=== PATIENT | female | born 1975 | race Caucasian/White ===

== ENCOUNTER 2017-03-12 20:04 | Emergency (ER) | payer BC ==
[~2017-03-12] VITALS: Ht 170.2 cm; Wt 110.0 kg
[~2017-03-12 20:04] MED LIST: AMOX-351 PO; HYDR-4246 PO; NO ROUTINE MEDS
[2017-03-12 20:06] VITALS: Ht 170.2 cm; Wt 110.0 kg
--- OUTSIDE RECORDS SUMMARY | 2017-03-12 20:09 | XMS REPORT | Referral Summary ---
Author Author [facility], [facility] Care Organization [facility] Address Unknown Phone Unavailable Care Team Providers Care Ice Guard Inspector Name Role Phone Jeffrey Benedict Primary Care Physician [phone] Encounter [facility] [id number] Date(s): 06/08/15 - 06/08/15 [facility], [address] [place] [address] Discharge Diagnosis: Lower UTI Discharge Diagnosis: Dysuria Discharge Diagnosis: Hematuria Discharge Disposition: 01-Home or Self Care Attending Physician: Madan Benedict MD Admitting Physician: Madan Benedict MD Vital Signs Most recent to 1 oldest [Reference Range]: Temperature Tympanic 37.2 degC [36.6-38.1 degC] (06/08/15 7:51 PM) Apical Heart Rate 91 bpm [60-100 bpm] (06/08/15 7:51 PM) Blood Pressure 126/76 mmHg [90-140/60-90 mmHg] (06/08/15 7:51 PM) SpO2 98 % (06/08/15 7:51 PM) Problem List No data available for this section Allergies, Adverse Reactions, Alerts Substance Reaction Severity Status sulfa drugs Active Medications No Known Medications Results No data available for this section Immunizations Vaccine Date Refusal Reason tetanus/diphth/pertuss (Tdap) adult/adol 11/04/10 Procedures Procedure Date Related Diagnosis Body Site section x 3 Repair of lacerations on chest1 Tubal ligation 1fell through window, age 4 Social History Social History Type Response Smoking Status Never smoker Assessment and Plan Extracted from: Title: Immediate care Author: Madan Benedict MD Date: 06/08/15 Assessment/Plan Dysuria Hematuria Lower UTI Orders: sulfamethoxazole-trimethoprim, 1 tabs, Oral, BID, X 10 days, # 20 tabs , 0 Refill(s), Pharmacy: [id number] Dipstick urinalysis was positive for 2+ leukocytes but also positive for blood. We'll treat for urinary tract infection and I advised follow-up urinalysis in 2 weeks to be sure the hematuria clears. Encourage fluids and follow-up if symptoms get worse.
--- OUTSIDE RECORDS SUMMARY | 2017-03-12 20:09 | XMS REPORT | Referral Summary ---
Author Author [facility], [facility] Organization [facility] Address Unknown Phone Unavailable Care Team Providers Care Skidway Man Name Role Phone Jeffrey Benedict Primary Care Physician [phone] Encounter [facility] [id number] Date(s): 11/18/16 - 11/18/16 [facility], [address] [place] [address] Discharge Diagnosis: Left foot pain Discharge Diagnosis: Left ankle sprain Discharge Diagnosis: Lower leg pain Discharge Disposition: 01-Home or Self Care Attending Physician: Madan Benedict MD Admitting Physician: Madan Benedict MD Vital Signs Most recent to 1 oldest [Reference Range]: Peripheral Pulse 79 bpm Rate [60-100 bpm] (11/18/16 1:24 PM) Blood Pressure 138/88 mmHg [90-140/60-90 mmHg] (11/18/16 1:24 PM) Problem List Condition Effective Dates Status Health Status Informant Obesity(Confirmed) Active patient Allergies, Adverse Reactions, Alerts Substance Reaction Severity Status sulfa drugs Active Medications PROzac 10 mg oral capsule 10 mg 1 caps, Oral, Daily, # 30 caps, 6 Refill(s), Pharmacy: [facility] # [id number], 1 caps Oral Daily Start Date: 08/31/16 Status: Ordered Tylenol Extra Strength 500 mg oral tablet 1,000 mg 2 tabs, Oral, q6hr, as needed for pain, 0 Refill(s) Start Date: 11/18/16 Status: Ordered Results No data available for this section Immunizations Given and Recorded Vaccine Date Status Refusal Reason tetanus/diphth/pertuss (Tdap) adult/adol1 06/20/16 Recorded tetanus/diphth/pertuss (Tdap) adult/adol 11/04/10 Recorded 1Location [place] [facility] [place] Procedures Procedure Date Related Diagnosis Body Site section x 3 Repair of lacerations on chest1 Tubal ligation 1fell through window, age 4 Social History Social History Type Response Smoking Status Never smoker Assessment and Plan Extracted from: Title: Acute OV-LLE Pain Author: Madan Benedict MD Date: 11/18/16 Impression and Plan Diagnosis Lower leg pain (LCL44-BS M79.669, Discharge, Medical). Left ankle sprain (ALJ53-YD S93.402A, Discharge, Medical). Left foot pain (SEG11-BI M79.672, Discharge, Medical). Orders Orders (Selected) Outpatient Orders Ordered (Exam Started) XR Foot Complete Left: XR Tibia/Fibula Left: .
--- OUTSIDE RECORDS SUMMARY | 2017-03-12 20:09 | XMS REPORT | Referral Summary ---
Author Author [facility], Family Medicine Organization [facility] Address Unknown Phone Unavailable Care Team Providers Care Latexer Name Role Phone Jeffrey Benedict Primary Care Physician [phone] Encounter Date(s): 07/28/16 - 07/28/16 [facility], [address] [place] [address] Discharge Diagnosis: Anxiety Discharge Disposition: 01-Home or Self Care Attending Physician: Madan Benedict MD Admitting Physician: Madan Benedict MD Vital Signs Most recent to 1 oldest [Reference Range]: Temperature Tympanic 37 degC [36.6-38.1 degC] (07/28/16 3:44 PM) Peripheral Pulse 80 bpm Rate [60-100 bpm] (07/28/16 3:44 PM) Blood Pressure 117/78 mmHg [90-140/60-90 mmHg] (07/28/16 3:44 PM) Problem List Condition Effective Dates Status Health Status Informant Obesity(Confirmed) Active patient Allergies, Adverse Reactions, Alerts Substance Reaction Severity Status sulfa drugs Active Medications [place] 5 mg-325 mg oral tablet 1-2 tabs, Oral, q6hr, as needed for pain, # 30 tabs, 0 Refill(s) Start Date: 06/21/16 Status: Ordered PROzac 10 mg oral capsule 10 mg 1 caps, Oral, Daily, # 30 caps, 0 Refill(s), Pharmacy: [facility] # [id number], 1 caps Oral Daily Start Date: 07/28/16 Status: Ordered Results No data available for this section Immunizations Vaccine Date Refusal Reason tetanus/diphth/pertuss (Tdap) adult/adol1 06/20/16 tetanus/diphth/pertuss (Tdap) adult/adol 11/04/10 1Location [place] [facility] [place] [facility] Procedures Procedure Date Related Diagnosis Body Site section x 3 Repair of lacerations on chest1 Tubal ligation 1fell through window, age 4 Social History Social History Type Response Smoking Status Never smoker Assessment and Plan No data available for this section
--- OUTSIDE RECORDS SUMMARY | 2017-03-12 20:09 | XMS REPORT | Referral Summary ---
Author Author [facility], Family Medicine Organization [facility] Address Unknown Phone Unavailable Care Team Providers Care Asphalt Heater Tender Name Role Phone Jeffrey Benedict Primary Care Physician [phone] Encounter Date(s): 06/10/15 - 06/10/15 [facility] [address] [place] [address] Discharge Diagnosis: Myalgia Discharge Diagnosis: Rash Discharge Diagnosis: Acute UTI Discharge Disposition: 01-Home or Self Care Attending Physician: Madan Benedict MD Admitting Physician: Madan Benedict MD Vital Signs Most recent to 1 oldest [Reference Range]: Temperature Tympanic 36.8 degC [36.6-38.1 degC] (06/10/15 10:59 AM) Peripheral Pulse 68 bpm Rate [60-100 bpm] (06/10/15 10:59 AM) Blood Pressure 98/55 mmHg [90-140/60-90 mmHg] (06/10/15 10:59 AM) Problem List No data available for this section Allergies, Adverse Reactions, Alerts Substance Reaction Severity Status sulfa drugs Active Medications No data available for this section Results Hematology Most recent to 1 oldest [Reference Range]: WBC [4.8-10.8 6.8 10*3/uL 10*3/uL] (06/10/15 12:00 PM) RBC [4.00-5.20 4.24 10*6/uL 10*6/uL] (06/10/15 12:00 PM) Hgb [12.0-16.0 12.5 gm/dL gm/dL] (06/10/15 12:00 PM) Hct [37.0-47.0 %] 36.2 % *LOW* (06/10/15 12:00 PM) MCV [82.0-99.0 fL] 85.4 fL (8/5/15 12:00 PM) MCH [27.0-32.0 pg] 29.5 pg (06/10/15 12:00 PM) MCHC [32.0-36.0 34.5 gm/dL gm/dL] (06/10/15 12:00 PM) RDW [11.5-14.5 %] 13.3 % (06/10/15 12:00 PM) Platelet [150-400 254 10*3/uL 10*3/uL] (06/10/15 12:00 PM) MPV [8.8-14.8 fL] 9.9 fL (06/10/15 12:00 PM) Immature 0.7 % Granulocytes (06/10/15 12:00 PM) [0.0-1.0 %] Neutrophils [51-75 80 % %] *HI* (06/10/15 12:00 PM) Lymphocytes [20-46 5 % %] *LOW* (06/10/15 12:00 PM) Monocytes [4-11 %] 10 % (06/10/15 12:00 PM) Eosinophils [0-4 %] 4 % (06/10/15 12:00 PM) Basophils [0-2 %] 0 % (06/10/15 12:00 PM) Neutro Absolute 5.41 10*3 [1.90-7.00 10*3] (06/10/15 12:00 PM) Lymph Absolute 0.36 10*3 [0.80-3.30 10*3] *LOW* (06/10/15 12:00 PM) [place] Absolute 0.67 10*3 [0.30-1.00 10*3] (06/10/15 12:00 PM) Eos Absolute 0.30 10*3 [0.00-0.50 10*3] (06/10/15 12:00 PM) Baso Absolute 0.01 10*3 [0.00-0.20 10*3] (06/10/15 12:00 PM) Immunizations Vaccine Date Refusal Reason tetanus/diphth/pertuss (Tdap) adult/adol 11/04/10 Procedures Procedure Date Related Diagnosis Body Site Collection of venous blood by venipuncture 06/10/15 section x 3 Repair of lacerations on chest1 Tubal ligation 1fell through window, age 4 Social History Social History Type Response Smoking Status Never smoker Assessment and Plan Extracted from: Title: Office Visit Note Author: Madan Benedict MD Date: 06/10/15 Assessment/Plan Acute UTI Urine culture and sensitivity is pending. I think she is having allergic reaction to the sulfa medicine and so we stopped it. I started her on amoxicillin him. Tad, but advised that when the culture and sensitivity results are available we may have to change antibiotics again. Ordered: Office Visit Level 3 Est 04151 Myalgia Considerations include symptoms related to urinary infection, immunologic symptoms related to allergic reaction to the sulfa medicine, or some other source of inflammatory symptoms such as West Nile or other viral infection. At this point she is not acutely ill/toxic and I don't think we would consider doing a lumbar puncture/spinal tap. If this was West Nile, supportive care would be all we have to offer medically (there is no specific antiviral medicine for West about Nile virus). For now we will just observe. May continue ibuprofen or Tylenol for fever and achiness. Ordered: CBC w/ Differential Office Visit Level 3 Est 43896 West Nile Virus PCR-Martinez Rash I think this rash is an allergic reaction to sulfa. Stop current medication and we have listed her as allergic to sulfa for the future. Ordered: Office Visit Level 3 Est [id number] Orders: amoxicillin, 875 mg 1 tabs, Oral, BID, X 10 days, # 20 tabs, 0 Refill( s), Pharmacy: [facility] #[id number], 1 tabs Oral BID,x10 days
--- OUTSIDE RECORDS SUMMARY | 2017-03-12 20:09 | XMS REPORT | Referral Summary ---
Author Author [facility] [place], [facility] Organization [facility] Address Unknown Phone Unavailable Care Team Providers Care Shade Hanger Name Role Phone Jeffrey Benedict Primary Care Physician [phone] Encounter Date(s): 05/12/16 - 05/12/16 [facility], [address] [place] [address] Discharge Diagnosis: Easy bruising Discharge Diagnosis: FH: ovarian cancer Discharge Diagnosis: Urine, incontinence, stress female Discharge Diagnosis: Fatigue Discharge Diagnosis: Cervical cancer screening Discharge Disposition: -Home or Self Care Attending Physician: Madan Benedict MD Admitting Physician: Madan Benedict MD Vital Signs Most recent to 1 oldest [Reference Range]: Temperature Tympanic 36.9 degC [36.6-38.1 degC] (05/12/16 2:02 PM) Peripheral Pulse 84 bpm Rate [60-100 bpm] (05/12/16 2:02 PM) Blood Pressure 121/78 mmHg [90-140/60-90 mmHg] (05/12/16 2:02 PM) Problem List No data available for this section Allergies, Adverse Reactions, Alerts Substance Reaction Severity Status sulfa drugs Active Medications No Known Medications Results Hematology Most recent to 1 oldest [Reference Range]: WBC [4.8-10.8 7.1 10*3/uL 10*3/uL] (05/12/16 3:12 PM) RBC [4.00-5.20] 4.40 (05/12/16 3:12 PM) Hgb [12.0-16.0 12.0 gm/dL gm/dL] (05/12/16 3:12 PM) Hct [37.0-47.0 %] 36.8 % *LOW* (05/12/16 3:12 PM) MCV [82.0-99.0 fL] 83.6 fL (05/12/16 3:12 PM) MCH [27.0-32.0 pg] 27.3 pg (05/12/16 3:12 PM) MCHC [32.0-36.0 32.6 gm/dL gm/dL] (05/12/16 3:12 PM) RDW [11.5-14.5 %] 14.1 % (05/12/16 3:12 PM) Platelet [150-400 314 10*3/uL 10*3/uL] (05/12/16 3:12 PM) MPV [8.8-14.8 fL] 9.7 fL (05/12/16 3:12 PM) Immature 0.4 % Granulocytes (05/12/16 3:12 PM) [0.0-1.0 %] Neutrophils [51-75 52 % %] (05/12/16 3:12 PM) Lymphocytes [20-46 33 % %] (05/12/16 3:12 PM) Monocytes [4-11 %] 14 % *HI* (05/12/16 3:12 PM) Eosinophils [0-4 %] 1 % (05/12/16 3:12 PM) Basophils [0-2 %] 0 % (05/12/16 3:12 PM) Neutro Absolute 3.68 10*3 [1.90-7.00 10*3] (05/12/16 3:12 PM) Lymph Absolute 2.33 10*3 [0.80-3.30 10*3] (05/12/16 3:12 PM) [place] Absolute 0.98 10*3 [0.30-1.00 10*3] (05/12/16 3:12 PM) Eos Absolute 0.10 10*3 [0.00-0.50 10*3] (05/12/16 3:12 PM) Baso Absolute 0.02 10*3 [0.00-0.20 10*3] (05/12/16 3:12 PM) Sed Rate [0-23] 7 (05/12/16 3:12 PM) Coagulation Most recent to 1 oldest [Reference Range]: PT Venous (05/12/16 3:12 PM) INR [0.8-1.2] 1.0 1 (05/12/16 3:12 PM) PTT [25.0-35.0 27.3 seconds seconds] (05/12/16 3:12 PM) 1Result Comment: Normal (no anticoagulant): 0.8 - 1.2 Units Routine Therapeutic Range: 2.0 - 3.0 Units High Risk Therapeutic Range: 2.5 - 3.5 Units Chemistry Most recent to 1 oldest [Reference Range]: Sodium Lvl [135-144 140 mEq/L mEq/L] (05/12/16 3:12 PM) Potassium Lvl 4.0 mEq/L [3.5-5.2 mEq/L] (05/12/16 3:12 PM) Chloride [99-111 108 mEq/L mEq/L] (05/12/16 3:12 PM) CO2 [22-31 mEq/L] 25 mEq/L (05/12/16 3:12 PM) AGAP [3-20] 7 (05/12/16 3:12 PM) BUN [7-19 mg/dL] 8 mg/dL (05/12/16 3:12 PM) Glucose Lvl [70-99 75 mg/dL mg/dL] (05/12/16 3:12 PM) Creatinine Lvl 0.78 mg/dL [0.57-1.11 mg/dL] (05/12/16 3:12 PM) eGFR [>60 mL/min] >60 mL/min 1 (05/12/16 3:12 PM) Calcium Lvl 8.8 mg/dL [8.9-10.5 mg/dL] *LOW* (05/12/16 3:12 PM) TSH with Reflex Free 1.97 T4 [0.35-4.94] (05/12/16 3:12 PM) 1Result Comment: Multiply eGFR results by 1.21 for race. Urinalysis Most recent to 1 oldest [Reference Range]: UA Color Yellow (05/12/16 1:40 PM) UA Appear Clear (05/12/16 1:40 PM) UA pH [5.0-8.0] 7.0 (05/12/16 1:40 PM) UA Leuk Est Negative [Negative] (05/12/16 1:40 PM) UA Nitrite Negative [Negative] (05/12/16 1:40 PM) UA Protein Negative [Negative] (05/12/16 1:40 PM) UA Glucose Negative [Negative] (05/12/16 1:40 PM) UA Ketones Negative [Negative] (05/12/16 1:40 PM) UA Urobilinogen 0.2 mg/dL [<=1.0 mg/dL] (05/12/16 1:40 PM) UA Bili [Negative] Negative (05/12/16 1:40 PM) UA Blood [Negative] Negative (05/12/16 1:40 PM) UA Spec Grav 1.015 [1.003-1.030] (05/12/16 1:40 PM) Type Cl Catch (05/12/16 1:40 PM) Immunizations Vaccine Date Refusal Reason tetanus/diphth/pertuss (Tdap) adult/adol 11/04/10 Procedures Procedure Date Related Diagnosis Body Site Collection of venous blood by venipuncture 05/12/16 section x 3 Repair of lacerations on chest1 Tubal ligation 1fell through window, age 4 Social History Social History Type Response Smoking Status Never smoker Assessment and Plan Extracted from: Title: CRMMP Author: Madan Benedict MD Date: 05/12/16 Impression and Plan Diagnosis Urine, incontinence, stress female (GTE95-NT N39.3, Discharge, Medical). Retention, urine (SSM35-HP R33.9, Working, Medical). FH: ovarian cancer (NYG46-BW Z80.41, Discharge, Medical). Fatigue (VVJ24-QI R53.83, Discharge, Medical). Easy bruising (AKA43-DU R23.8, Discharge, Medical). Cervical cancer screening (AJU29-UM Z12.4, Discharge, Medical). Orders Orders (Selected) Outpatient Orders Future (On Hold) HPV High Risk, Thin Prep: Pathology Abstracter Cytology Order: .
--- OUTSIDE RECORDS SUMMARY | 2017-03-12 20:09 | XMS REPORT | Referral Summary ---
Author Author [facility], [facility] Organization [facility] Address Unknown Phone Unavailable Care Team Providers Care Sander Hand Name Role Phone Jeffrey Benedict Primary Care Physician [phone] Encounter [facility] [id number] Date(s): 01/08/16 - 01/08/16 [facility], [address] [place] [address] Discharge Diagnosis: Viral URI Discharge Diagnosis: Contact dermatitis Discharge Disposition: 01-Home or Self Care Attending Physician: Madan Benedict MD Admitting Physician: Madan Benedict MD Vital Signs Most recent to 1 oldest [Reference Range]: Temperature Tympanic 37.1 degC [36.6-38.1 degC] (01/08/16 2:11 PM) Peripheral Pulse 75 bpm Rate [60-100 bpm] (01/08/16 2:11 PM) Blood Pressure 120/70 mmHg [90-140/60-90 mmHg] (01/08/16 2:11 PM) SpO2 98 % (01/08/16 2:11 PM) Problem List No data available for this section Allergies, Adverse Reactions, Alerts Substance Reaction Severity Status sulfa drugs Active Medications triamcinolone 0.1% topical cream 1 tamara, Topical, TID, # 15 g, 0 Refill(s), Pharmacy: [facility] #[id number] Start Date: 01/08/16 Stop Date: 02/08/16 Status: Ordered Results No data available for [...] Visit Note Author: Madan Benedict MD Date: 01/08/16 Assessment/Plan Contact dermatitis Viral URI Orders: triamcinolone topical, 1 tamara, Topical, TID, # 15 g, 0 Refill(s), Pharmacy: [facility] #[id number] Discussed symptomatic management with viral URI and signs and symptoms to watch for regarding possible secondary bacterial infection. Prescription for triamcinolone cream for contact dermatitis in the upper chest , and she may also use it for an eczematous type rash on the hands. Advised to limit use to about 10 days to avoid steroid related toxicity/atrophy. Follow-up when necessary.
--- NOTE | 2017-03-12 20:15 | ERPDOC ---
Departure Disposition Decision Date: March 12, 2017 Disposition Decision Time: 21:15 (MILLICENT TRIVEDI APRN) Disposition: 01 DISCHARGED HOME, SELF-CARE Impression Impression (MILLICENT TRIVEDI APRN) Impression: Primary Impression: Avulsion fracture of metatarsal bone of left foot Encounter type: initial encounter Fracture type: closed Qualified Codes: S92.302A - Fracture of unspecified metatarsal bone(s), left foot, initial encounter for closed fracture Condition: Improved Seen By: Mid-level only (MILLICENT TRIVEDI APRN) Referrals: ROMEL POLLARD MD (Family) Patient Instructions: Foot Fracture in Adults (ED) Problems/Meds/Labs Reviewed?: Yes Medications reviewed and manag: Yes (MILLICENT TRIVEDI APRN) Additional Instructions: You x-ray shows an avulsion fracture over the 5th metatarsal which could represent a new fracture or an old fracture. Wear walking boot as directed. You may take 800mg of ibuprofen every 8 hours as needed for pain with food. Follow with your PCP in one week for re-evaluation and repeat x-ray. Follow treatment plan. Follow up care ordered?: Yes Mental Status: Alert, Oriented (MILLICENT TRIVEDI APRN) HPI - Lower Extremity General Chief Complaint: Lower Extremity Pain Stated Complaint: LT FT PAIN Time Seen by Provider: 20:06 Source: patient (MILLICENT TRIVEDI APRN) Time Seen by Provider: 20:06 (YASMEEN BOB DO) HPI - Lower Extremity Initial Comments 42 YO F presents to ED with left foot pain. Says she was at home today at approx. 1500 and stepped wrong. Unsure what she did to her foot. Was on carpet inside home. Says she felt a pop. Painful if she is bearing weight. Has not taken anything for pain. Pain/Severity Scale: Now: 2/10 (non weight bearing), Worst: 8/10 (weight bearing) Pain/Injury Location: left foot Quality: aching (MILLICENT TRIVEDI APRN) Allergies: Coded Allergies: sulfamethoxazole (Verified Allergy, Unknown, 03/12/17) trimethoprim (Verified Allergy, Unknown, 03/12/17) Past History Past Medical History Metabolic: DENIES: diabetes Cardiac: DENIES: angina Respiratory: DENIES: asthma GI: DENIES: ulcers Female: DENIES: renal insufficiency Neurological: DENIES: seizures Musculoskeletal: DENIES: osteoarthritis Psychological: anxiety (MILLICENT TRIVEDI EXTRUSION TECHNICIAN) Surgical History Reproductive/: (MILLICENT TRIVEDI EXTRUSION TECHNICIAN) Family History Family PMH: FOUND: other (noncontributory) (MILLICENT TRIVEDI APRN) Vaccines Hx Tetanus, Diptheria, Pertuss: Yes (2004) (MILLICENT TRIVEDI EXTRUSION TECHNICIAN) Social History Sexuality: male partner Household Members: family (MILLICENT TRIVEDI APRN) Review of Systems Constitutional Constitutional: DENIES: chills, dizziness, fever, weakness (MILLICENT TRIVEDI EXTRUSION TECHNICIAN) Eyes General: DENIES: erythema, exudate Lids/Accessories: DENIES: erythema, swelling (MILLICENT TRIVEDI EXTRUSION TECHNICIAN) ENMT Ears: DENIES: pain Sinuses: DENIES: congestion, rhinorrhea Mouth/Throat: DENIES: sore throat (LEAH TRIVEDIS A EXTRUSION TECHNICIAN) Cardiovascular Cardiac: DENIES: chest pain, murmur Rhythm/Rate: DENIES: palpitations (MILLICENT TRIVEDI EXTRUSION TECHNICIAN) Pulmonary Respiratory: DENIES: cough, dyspnea (MILLICENT TRIVEDI EXTRUSION TECHNICIAN) GI Upper Abdomen: DENIES: nausea, pain, vomiting Lower Abdomen: DENIES: diarrhea, pain (LEAH TRIVEDIS A EXTRUSION TECHNICIAN) General: DENIES: dysuria, pain (LEAH TRIVEDIS A EXTRUSION TECHNICIAN) Musculoskeletal General: pain, see HPI, tenderness (LEHA TRIVEDIS A EXTRUSION TECHNICIAN) Integumentary Skin: DENIES: color change, itching, rash (LEAH TRIVEDIS A EXTRUSION TECHNICIAN) Neurological General: DENIES: ataxia, change in strength, numbness, paralysis/paresis, weakness (LEAH TRIVEDIS A EXTRUSION TECHNICIAN) Psychiatric Psychiatric: DENIES: anxiety, depression, nervousness (LEAH TRIVEDIS A EXTRUSION TECHNICIAN) Physical Exam General General Nourishment: well nourished, well developed, no acute distress, adult General Body Habitus: well groomed (MILLICENT TRIVEDI EXTRUSION TECHNICIAN) Vitals and Pain First Documented Vital Signs Date Time Temp Pulse Resp B/P Pulse Ox O2 Delivery O2 Flow Rate FiO2 03/12/17 20:06 98.3 86 16 131/74 99 Room Air (YASMEEN BOB DO) Vitals and Pain Weight: Kilograms: 110.000 Height (feet): 5 Height (inches): 7.00 Triage Pain Scale: (MILLICENT TRIVEDI EXTRUSION TECHNICIAN) Eyes (brief) Eyes Brief: found: EOMI (MILLICENT TRIVEDI EXTRUSION TECHNICIAN) ENMT (brief) ENMT Brief: NOT FOUND: nasal exudate, nasal swelling (MILLICENT TRIVEDI EXTRUSION TECHNICIAN) Neck (brief) Neck: FOUND: trachea midline (MILLICENT TRIVEDI EXTRUSION TECHNICIAN) Respiratory (brief) Respiratory: FOUND: clear all christiansen, equal bilaterally, symmetrical (MILLICENT TRIVEDI EXTRUSION TECHNICIAN) Cardiovascular (brief) Cardiac: FOUND: regular rate, regular rhythm (MILLICENT TRIVEDI EXTRUSION TECHNICIAN) Fastrak Foot/Ankle Foot/Ankle : Leg: Left Ankle: tender lat. foot, tender mid foot, NOT FOUND: achilles tendon insertion, anterior drawer sign, decreased ROM, deformity, ecchymosis, foot drop , numbness, swelling, tender lat. malleolus, tender med. malleolus, weakness Foot: tender plantar fascia, NOT FOUND: atrophy, deformity, discoloration, numbness, other, swelling, tender 1st MTP joint Toes: NOT FOUND: cap refill <2 sec ea toe, decreased ROM, deformity, ecchymosis, erythema, nail avulsion, subungual hematoma Dorsalis Pedis Pulse: 2+ (MILLICENT TRIVEDI EXTRUSION TECHNICIAN) Integumentary (brief) Integumentary Brief: FOUND: dry, pink, warm (MILLICENT TRIVEDI EXTRUSION TECHNICIAN) Neurologic (brief) Neurological Brief: FOUND: motor-no gross deficits, sensory-no gross deficits ( MILLICENT TRIVEDI EXTRUSION TECHNICIAN) Psychiatric (brief) Psychiatric Brief: FOUND: alert, normal affect, oriented (MILLICENT TRIVEDI EXTRUSION TECHNICIAN ) Differential Diagnoses Considering: Contusion, Fracture, Sprain, Strain (MILLICENT TRIVEDI EXTRUSION TECHNICIAN) Progress Results/Orders Orders Procedure Category Date Status Time Foot Left 3 Views RAD 03/12/17 Taken Premade Splint EDM 03/12/17 Transmitted 21:18 Ketorolac (Toradol) PHA 03/12/17 Complete 21:45 (YASMEEN BOB DO) Medications Current ED Medications Ketorolac Tromethamine (Toradol) 60 mg O ONCE IM Last administered on t 21:45; Start 03/12/17 at 21:45; Stop 5/7/17 at 21:46; Status DC (YASMEEN BOB DO) Progress Progress I discussed x-ray findings with patient. Patient verbalized understanding of treatment plan, follow up with PCP and return precautions. Patient declined any narcotic pain medication. (MILLICENT TRIVEDI APRN) Xray Xray : Xray: Foot L (little irregularity over 5th metatarsal could be new fracture or old fracture (Dr. Bob)) (MILLICENT TRIVEDI APRN) MILLICENT TRIVEDI APRN March 12, 2017 20:15 YASMEEN BOB DO March 13, 2017 01:58
--- NOTE | 2017-03-12 20:19 | NUR ---
DESMOND TRIVEDI AT BEDSIDE.
[2017-03-12] MEDS ORDERED: FLUO-137 PO (20:21)
--- NOTE | 2017-03-12 20:39 | NUR ---
XRY PORTABLE AT BEDSIDE.
[2017-03-12] MEDS ORDERED: KETOROLAC 60mg/2ml INJECTION IM ONE (21:45)
[2017-03-12 22:18] VITALS: BP 107/59; PULSE 78; RESP 12; TEMP 99; O2SAT 97
--- NOTE | 2017-03-12 22:18 | NUR ---
DISMISS PT DISMISSED AMBULATORY TO LOBBY, WALKER BOOT IN PLACE. GAIT STEADY WITH BOOT; PT ACCOMPANIED BY .
--- NOTE | 2017-03-13 08:53 | DI ---
Indication: ITS.REASON: pain over mid and lateral foot PROCEDURE: FOOT LEFT 3 VIEWS: Encounter: Initial Comparison: None Findings: There is no acute fracture, dislocation or malalignment identified. There is perhaps mild hallux Lyndon deformity. There is mild degenerative change of the first MTP joint. There is a fairly large plantar and a fairly large posterior calcaneal heel spur. Impression: No acute osseous abnormality. .
== END 2017-03-12 22:18 | disposition home or self-care (01) ==
LOC: ED 20:04
DX: S92.352A Displaced fracture of fifth metatarsal bone, left foot, initial encounter for closed fracture (principal); X58.XXXA Exposure to other specified factors, initial encounter; Y93.9 Activity, unspecified; Y92.009 Unspecified place in unspecified non-institutional (private) residence as the place of occurrence of the external cause; Y99.8 Other external cause status
CPT/HCPCS: 73630; 96372; 99283; J1885